=== PATIENT | female | born 2005 | race Two or more races ===

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

== ENCOUNTER 2024-02-04 11:49 | Day surgery (SDC) | payer OTHER, SELFPAY ==
[2024-02-02 14:47] VITALS: BMI 31.4
[2024-02-04 12:52] VITALS: BMI 30.5
[2024-02-04 13:02] LABS: UPreg QC Valid YES; Urine Pregnancy NEGATIVE (NEGATIVE)
--- NOTE | 2024-02-04 13:05 | HO.ANESPROP2 ---
Documented by User: Candice Guerra NP 02/03/24 12:21 HPI - Anesthesia Eval Consult details Narrative: 18yo F for Upper Endoscopy [facility] Active Problems Active Problems: All Active Problems HTN (hypertension) (Acute) Palpitations (Acute) Past Medical History Medical History Headache Palpitations Anxiety Asthma GERD (gastroesophageal reflux disease) Family History Family History Father Diabetes Mother HTN (hypertension) BEATRICE (obstructive sleep apnea) Surgical History Surgical History History of oral surgery Social History Social History (Updated 02/02/24 @ 14:49 by Teresa Troy RN) Patient Tobacco Use Status: Never used Tobacco Use of substances other than those prescribed or required for medical reasons: No Are you DNR?: No Advance Directives: No Advance Directives Information Provided: Yes Recently lost weight without trying: No Meds Allergies Allergy/AdvReac Type Severity Reaction Status Date / Time animal dander [ANIMAL DANDER] Allergy Intermediate sinus Verified 02/04/24 12:52 congestion SEAFOOD Allergy Intermediate HIVES Uncoded 02/02/24 14:48 food coloring Allergy Unknown Unknown Uncoded 02/02/24 14:48 Home Medications ?Medication ?Instructions ?Recorded ?Confirmed ?Last Taken ?Type cetirizine 10 mg capsule (Wal-Zyr 10 mg PO DAILY PRN Allergy Symptoms 06/03/23 02/04/24 Unknown History (cetirizine)) omeprazole 20 mg capsule,delayed 20 mg PO QAM 06/03/23 02/04/24 Unknown History release Exam Height,Weight and Vital Signs: Height 5 ft 2 in Weight 77.791 kg Assessment and Plan Assessment Anesthesia Assessment: Chart Reviewed Documented by User: Brooklyn Rosado DO 02/04/24 13:10 [facility] Past Medical History Medical History Headache Palpitations Anxiety Asthma GERD (gastroesophageal reflux disease) Family History Family History Father Diabetes Mother HTN (hypertension) BEATRICE (obstructive sleep apnea) Family history of problems with anesthesia: No Surgical History Surgical History History of oral surgery History of Problems with Anesthesia: No Social History Social History (Updated 02/02/24 @ 14:49 by Teresa Troy RN) Patient Tobacco Use Status: Never used Tobacco Use of substances other than those prescribed or required for medical reasons: No Are you DNR?: No Advance Directives: No Advance Directives Information Provided: Yes Recently lost weight without trying: No Meds Allergies Allergy/AdvReac Type Severity Reaction Status Date / Time animal dander [ANIMAL DANDER] Allergy Intermediate sinus Verified 02/04/24 12:52 congestion SEAFOOD Allergy Intermediate HIVES Uncoded 02/02/24 14:48 food coloring Allergy Unknown Unknown Uncoded 02/02/24 14:48 Home Medications ?Medication ?Instructions ?Recorded ?Confirmed ?Last Taken ?Type cetirizine 10 mg capsule (Wal-Zyr 10 mg PO DAILY PRN Allergy Symptoms 06/03/23 02/04/24 Unknown History (cetirizine)) omeprazole 20 mg capsule,delayed 20 mg PO QAM 06/03/23 02/04/24 Unknown History release Exam Exam Date and Time: 02/04/24 1308 Height,Weight and Vital Signs: Height 5 ft 2 in Weight 77.791 kg Vital Signs Temperature 98.0 F 02/04/24 13:08 Pulse Rate 94 02/04/24 13:08 Respiratory Rate 15 02/04/24 13:08 Blood Pressure 137/88 02/04/24 13:08 Pulse Oximetry 98 02/04/24 13:08 Oxygen Delivery Method Room Air 02/04/24 13:08 Temperature 98.0 F 02/04/24 13:08 Pulse Rate 94 02/04/24 13:08 Respiratory Rate 15 02/04/24 13:08 Blood Pressure 137/88 02/04/24 13:08 Pulse Oximetry 98 02/04/24 13:08 Oxygen Delivery Method Room Air 02/04/24 13:08 Airway Mallampati Class: II TM Dist: >3cm Neck ROM: Full Loose/Missing/Broken Teeth: No (patient denies any loose or broken teeth) Heart: S1S2 Lungs: CTAB Assessment and Plan Assessment Anesthesia Assessment: Anesthesia Plan Discussed and Chart Reviewed Final Anesthetic Review Family History of Problems with Anesthesia: No History of Problems with Anesthesia: No NPO: Yes ASA Class: II Final Preanesthetic Review: No Changes in Pt Med Stat, Meds/Allgs Chart Reviewed, Consent Obtained/Reviewed and Anes Risks/Benef Reviewed Patient Risk: Low Procedure Risk: Low Anesthetic Plan Anesthetic Plan: MAC: and Agree w/ Assess. and Plan Disposition: Standard PACU
[2024-02-04 13:08] VITALS: BP 137/88; PULSE 94; RESP 15; TEMP 36.7; O2SAT 98
--- NOTE | 2024-02-04 13:12 | MHC.SHP ---
Pre-Procedural Eval Section A - 24 Hr Update-Section A only Date of Service: 02/04/24 The patient is an INPATIENT: No Changes since office visit: No Cold of Flu in the past 2 weeks, No New Medical Problems, No Changes in Medication and No Patient answered all questions The patient has been examined within 24 hours of the surgical procedure. The History & Physical has been completed within 30 days and I have reviewed it.: Yes Section B - Complete if H&P > 30 days Chief Complaint: Gastro-esophageal reflux disease without esophagit Allergies: Allergies Allergy/AdvReac Type Severity Reaction Status Date / Time animal dander [ANIMAL DANDER] Allergy Intermediate sinus Verified 02/04/24 12:52 congestion SEAFOOD Allergy Intermediate HIVES Uncoded 02/02/24 14:48 food coloring Allergy Unknown Unknown Uncoded 02/02/24 14:48 Plan I have reviewed the history and physical and performed a pertinent physical examination on my patient. No changes have occurred unless specified. Time Spent With Patient Time: Total time managing care of this patient today ____ minutes.
[2024-02-04] MEDS: Lactated Ringers 1,000 ML 100 ML IVCONT (13:14)
[2024-02-04 13:32] VITALS: BP 97/55; PULSE 101; RESP 16; TEMP 36.5; O2SAT 95
[2024-02-04 13:47] VITALS: BP 103/64; PULSE 81; RESP 16; TEMP 36.5; O2SAT 95
--- NOTE | 2024-02-04 13:53 | OP_ITS ---
DATE OF SERVICE: 02/04/2024 SURGEON: Robert Greenfield MD INDICATIONS: Gastroesophageal reflux disease. PREOPERATIVE DIAGNOSIS: POSTOPERATIVE DIAGNOSIS: PROCEDURE PERFORMED: Upper endoscopy with biopsy. ESTIMATED BLOOD LOSS: COMPLICATIONS: ANESTHESIA: Monitored anesthesia care. ASSISTANTS: SPECIMENS: DESCRIPTION OF PROCEDURE: A history and physical was performed. The risks and benefits of the procedure were explained to the patient and informed consent was obtained. The patient was placed in left lateral decubitus position. The Olympus video gastroscope was introduced into the esophagus, stomach, and duodenum. Examination was performed and the scope was removed. She tolerated the procedure well and was returned to recovery area in stable condition. FINDINGS: Esophagus: The esophagus was normal. There was no esophagitis. Biopsies were obtained from the EG junction. Stomach: The stomach showed a few linear streaks of erythema consistent with mild gastritis. Biopsies were obtained from the antrum. Duodenum: The bulb and 2nd portion were normal. Biopsies were obtained from the 2nd portion. IMPRESSION: 1. Gastroesophageal reflux disease. 2. Gastritis. RECOMMENDATIONS: 1. Follow up the biopsy results. 2. Continue proton pump inhibitor. MD BLADIMIR Brock/RED / [id number]
== END 2024-02-04 14:23 | disposition home or self-care (01) ==
PROVIDERS: Nurse Practitioner; PCP Registered Nurse; Visit Provider Internal Medicine Gastroenterology
PROC: 0DJ08ZZ Inspection of Upper Intestinal Tract, Via Natural or Artificial Opening Endoscopic (ICD-10-PCS; CPT 43235; principal; 2024-02-04 13:00)
DX: K21.9 Gastro-esophageal reflux disease without esophagitis (principal); K29.50 Unspecified chronic gastritis without bleeding; J45.909 Unspecified asthma, uncomplicated; F41.9 Anxiety disorder, unspecified; R00.2 Palpitations; R51.9 Headache, unspecified; Z79.899 Other long term (current) drug therapy
CPT/HCPCS: 43239; 81025; 88305; 88313; 88342; J2003; J2704

== ENCOUNTER 2024-08-02 14:47 | Outpatient (AMB) | payer OTHER, SELFPAY ==
[2024-08-02 15:01] VITALS: BP 133/84; PULSE 85; O2SAT 97; BMI 32.7
--- NOTE | 2024-08-02 15:01 | A.OFFVIS_ITS ---
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 Accompanied by: Mother Allergies animal dander [ANIMAL DANDER] Allergy (Intermediate, Verified 08/02/24 15:04) sinus congestion SEAFOOD Allergy (Intermediate, Uncoded 08/02/24 15:04) HIVES food coloring Allergy (Unknown, Uncoded 08/02/24 15:04) Unknown Medication List - Last Reconciled 08/02/24 by KIRK McgeeC cetirizine (Wal-Zyr (cetirizine)) 10 mg PO DAILY PRN omeprazole 20 mg PO QAM HPI HPI r/s 07/15/24 1 yr followup w/ekg dx: htn: Details: Saad is a 19-year-old female with no significant past medical history who was referred to Cardiology for evaluation of hypertension and heart palpitations. She did undergo cardiac evaluation last year without significant findings. She was managed conservatively and now presents for follow-up. Today she reports that she has been feeling well since her last visit 07/14/2023. She tells me her heart palpitations and chest discomfort has fully resolved. She believes it was all related to stress and anxiety. She currently offers no concerning symptoms. She denies chest pains, shortness of breath, palpitations, lightheadedness. She has been working at [employer] what she says is a very active job. She does no routine exercise. She is following with a linux admin engineer and trying to improve her diet and weight. Her mother is present. [facility] Medical History Headache Palpitations Anxiety Asthma GERD (gastroesophageal reflux disease) Surgical History History of oral surgery Family History Father Diabetes Mother HTN (hypertension) BEATRICE (obstructive sleep apnea) Social History Patient Tobacco Use Status: Never used Tobacco Review of Systems Const All systems reviewed & are unremarkable except as noted in HPI and below Denies fever(s), Denies frequent falls, Denies weakness and Denies weight loss ENT Denies dizziness Card Denies lightheadedness, Denies dyspnea on exertion, Denies orthopnea and Denies other (loss of consciousness) Resp Denies cough and Denies dyspnea on exertion GI Denies hematochezia and Denies change in stool character Musc Denies abnormal gait, Denies muscle weakness, Denies numbness, Denies radiating pain into limb and Denies tingling Neuro Denies abnormal gait, Denies dizziness, Denies frequent falls, Denies numbness, Denies tingling and Denies weakness Physical Exam Vital Signs: Last Vital Signs Pulse 85 08/02/24 15:01 BP 133/84 08/02/24 15:01 Pulse Ox 97 08/02/24 15:01 Oxygen Delivery Method Room Air 08/02/24 15:01 BMI result Body Mass Index 32.7 Const General: cooperative, healthy appearing, comfortable and no acute distress Orientation/consciousness: patient oriented x3 Neck Neck: Yes normal visual inspection and Yes no JVD Resp Effort & Inspection: normal respiratory effort Auscultation: clear to auscultation bilaterally, no crackles, no rales, no rh onchi and no wheezes Cardio Jugular venous distension: no JVD Rate: regular rate Rhythm: regular rhythm Heart sounds: S1 normal heart sound present, S2 normal heart sound present, no murmurs and no rubs Neuro General: patient oriented x3 Extrem General: Yes normal to inspection, No no pedal edema and No calf tenderness Psych Appearance: grossly normal Mental Status: mental status grossly normal Speech and movement: Normal speech and movement present Office Procedures EKG Details: Today, read by me Sinus rhythm, rate 84, Qtc 439ms [id number], Complete Assessment & Plan Assessment & Plan (1) HTN (hypertension): Code(s): I10 - Essential (primary) hypertension Category: Medical Plan: Prior reports of elevated home blood pressures, mostly diastolic. She says her readings go up when she is stressed and anxious. Our office blood pressures have been in the normal range. She has not on any antihypertensive agents. An echocardiogram was done on 06/26/2023 which was a normal study. A sleep study was done 07/16/2023 which showed no obstructive sleep apnea. She did have blood work to evaluate for potential secondary causes of hypertension (aldosterone, renin, plasma free metanephrines, plasma free normetanephrines) and all testing was normal range. Blood pressure today 133/84. Continue to work on Weight loss, physical activity as tolerated, caffeine reduction, low-salt diet discussed. Continue periodic home blood pressures. Still No need for medical management at this time. She will follow with her PCP. Cardiology follow-up will be p.r.n.. (2) Palpitations: Code(s): R00.2 - Palpitations Category: Medical Plan: Prior reports of uncomfortable pulsation in her right lateral neck when she has heart palpitations. At this time her heart palpitations have fully resolved. A Holter monitor done on 06/18/2023 showed sinus rhythm, average rate 87, 1 PAC. Patient marker used twice in association with sinus and the supraventricular ectopy. Her description of palpitation, skipping correlated with the supra ventricular ectopy beat. Reviewed this with her. Offered reassurance and will have her Continue to have reduced caffeine intake. Continue to stay well hydrated, get adequate rest, increase physical activity. Plan During the visit, we discussed the improvement in chest pain and palpitations due to reduced stress. Managing stress and dietary intake were highlighted as laird components in managing her condition. We reviewed the normal EKG results and emphasized the importance of lifestyle changes such as reducing salt and caffeine, increasing physical activity, and monitoring blood pressure. I recommended periodic monitoring her blood pressure at rest to assess any need for medication in the future. Follow-up with her primary care provider for continued monitoring and potential involvement of cardiology if symptoms arise was advised. Patient Instructions: - Monitor your blood pressure periodically - Follow a low-sodium diet - Increase physical activity; aim for regular exercise - Manage stress through relaxation techniques - Avoid smoking and recreational drugs - Follow up with primary care physician - Maintain contact with cardiology if symptoms worsen Patient was informed and verbally consented to the use of an ambient scribe for clinic note documentation during this visit. Visit time spent on chart review, interview, assessment, orders, documentation. Coding Level of Care Code Est Pt Level 3 (58446) Complex EM visit Add On G2211 Diagnoses HTN (hypertension) I10 Palpitations R00.2 CPT Codes EKG - CPT: 91326-[id number], Complete ([id number]) Time Spent (min) 24
--- OUTSIDE RECORDS SUMMARY | 2024-08-02 16:05 | XMS_ITS | Clinical Summary ---
Author Organization [employer] Address [address] [facility] [place] [address] Care Team Providers Care Advance Seal Delivery System Maintainer Name Role Phone Jazmín Castellon Primary Care Provider [phone] Robert Greenfield MD Unavailable [phone] Allergies Active Allergy Reactions Criticality Noted Date Comments Cat Dander High 02/06/2022 Other Reaction(s): sinus congestion Egg-Derived Products 02/06/2022 Pollen Extract 02/06/2022 Shellfish Allergy Hives High 02/02/2024 Shrimp (Diagnostic) 02/06/2022 SEAFOOD ALLERGY Medications * This document contains information received from the source organization and may not represent a complete record from that organization. fluticasone (Flonase Sensimist) 27.5 MCG/SPRAY nasal spray Administer 1 spray into each nostril in the morning. 2 Active polyvinyl alcohol (Liquifilm Tears) 1.4 % ophthalmic solution Administer 1 drop into both eyes in the morning, at noon, and at bedtime. 1 Active albuterol (ProAir HFA) 108 (90 Base) MCG/ACT inhalerIndicatio ns:Mild intermittent asthma without complication Inhale 1-2 puffs every 6 (six) hours if needed for wheezing or shortness of breath. 18 g 11 2 Active diphenhydrAMINE (BENADryl) 12.5 MG/5ML liquidIndication s:Allergy, subsequent encounter Take 10 mL (25 mg) by mouth every 6 (six) hours if needed for itching or allergies. 118 mL 3 2 Active triamcinolone (Kenalog) 0.1 % creamIndications :Chronic pruritus Apply topically in the morning. Mix with cerave. Apply after showers 80 g 2 3 Active Additional Information Patient not taking.Reported on 06/24/2024 ceramides (CeraVe) moisturizing creamIndications :Chronic pruritus Apply 1 application topically if needed for dry skin. 453 g 2 3 Active lidocaine (Lidoderm) 5 % patchIndications :Low back pain at multiple sites Apply 1 patch topically in the morning. Remove & discard patch within 12 hours or as directed by MD. 30 patch 11 3 Active Additional Information Patient not taking.Reported on 06/24/2024 ketoconazole (NIZOral) 2 % shampoo Apply topically 2 (two) times a week. 120 mL 1 4 Active Additional Information Patient not taking.Reported on 06/24/2024 cetirizine (ZyrTEC) 1 MG/ML syrup Take 10 mL (10 mg) by mouth in the morning. 300 mL 11 4 Active econazole nitrate 1 % cream Apply topically 2 times daily. Use to abdominal fold x 2-4 weeks. 30 g 1 4 02/16/20 25 Active Additional Information Patient not taking.Reported on 06/24/2024 EPINEPHrine (Epipen) 0.3 MG/0.3ML injection syringe Inject 0.3 mL (0.3 mg) as directed 1 (one) time if needed for anaphylaxis for up to 1 dose. Inject into upper leg. Call 911 after use. 2 each 2 4 Active omeprazole OTC (PriLOSEC OTC) 20 MG EC tabletIndication s:Gastroesophage al reflux disease without esophagitis Take 1 tablet (20 mg) by mouth before breakfast and before evening meal. Do not crush, chew, or split. 180 tablet 3 5 05/30/19 26 Active Sodium Fluoride 1.1 % cream [place] teeth for 2 minutes, morning and night. Spit, do not rinse. Do not eat or drink anything for 30 minutes following use. 112 g 3 5 Active Active Problems Problem Noted Date Diagnosed Date Dental calculus 06/24/2024 Gingival bleeding 06/24/2024 Tooth decalcification 06/24/2024 Tonsillar hypertrophy, unilateral 06/24/2024 HTN (hypertension) 03/23/2024 Chest pain 03/23/2024 Allergic reaction 03/23/2024 Vague bodily discomfort 05/08/2023 Assessment & Plan (05/09/2023 2:58 AM EST): Patient reports that she has been feeling palpitations and occasional chest pain. She has an appt. With carton forming machine helper in June. F/U with provider. Future Appointments Date Time Provider Department Center 05/12/2023 9:[address] DIAB NUTR [facility] 06/02/2023 3:30 PM AXEL Harding [facility] History of multiple allergies 01/30/2023 Overview (06/02/2023): -Previously receiving allergy shots from [facility] [facility]. Past documented allergies include eggs, shellfish, animal dander (cats especially), and pollen. Reports 2 episodes of anaphylactic reaction following allergy shots, required ED visit with epi. Pt with understandable anxiety following anaphylactic reactions. -Reports that heat and strong emotions also trigger flares of atopic derm and hive-like rash on body (no associated throat swelling). -Referral to [facility] placed 06/02/23 Gastroesophageal reflux disease without esophagi tis 10/03/2022 Overview (02/19/2024): - EGD performed 02/04/24 for persistence of symptoms despite PPI use (Dr. Greenfield) Assessment & Plan (02/19/2024 8:46 PM EST): Cont lifestyle interventions such as avoid triggering foods (such as coffee, chocolate, fatty foods, tomato, spicy foods), eating 2-3 hours before lying down Increase omeprazole dosing to BID dosing Follow up with GI as scheduled Path report from EGD pending Assessment & Plan (10/09/2023 8:08 PM EDT): Cont lifestyle interventions such as avoid triggering foods (such as coffee, chocolate, fatty foods, tomato, spicy foods), eating 2-3 hours before lying down Cont omeprazole PRN PPI > 8 weeks, symptoms persist Referral to GI placed 10/09/23 Assessment & Plan (06/02/2023 6:39 PM EDT): Clinical presentation c/w acid reflux Cont lifestyle interventions such as avoid triggering foods (such as coffee, chocolate, fatty foods, tomato, spicy foods), tobacco cessation, eating 2-3 hours before lying down Cont omeprazole PRN. Consider referral to GI if use > 8 weeks w/ symptom resistant Assessment & Plan (03/23/2023 1:57 PM EST): ?? Clinical presentation c/w acid reflux ?? Reviewed lifestyle interventions to decrease symptoms including avoid triggering foods (such as coffee, chocolate, fatty foods, tomato, spicy foods), tobacco cessation, eating 2-3 hours before lying down ?? Plan to start PPI. (pt prefers liquid form). Spoke with [facility] pharmacy - will plan to trial lansoprazole disintegrating tablet. Assessment & Plan (01/30/2023 7:35 PM EST): ?? Clinical presentation c/w acid reflux ?? Reviewed lifestyle interventions to decrease symptoms including avoid triggering foods (such as coffee, chocolate, fatty foods, tomato, spicy foods), tobacco cessation, eating 2-3 hours before lying down ?? Education handouts provided ?? Cont famotidine 20mg BID PRN. Reviewed med use and SE. (pt prefers liquid form) Assessment & Plan (10/03/2022 6:06 PM EDT): ?? Clinical presentation c/w acid reflux ?? Reviewed lifestyle interventions to decrease symptoms including avoid triggering foods (such as coffee, chocolate, fatty foods, tomato, spicy foods), tobacco cessation, eating 2-3 hours before lying down ?? Education handouts provided ?? Start famotidine 20mg BID Prn. Reviewed med use and SE. (pt prefers liquid form) Anxiety 06/18/2022 Assessment & Plan (10/03/2022 6:08 PM EDT): -In office RV BE completed by Aleshia Palomares following appt. Please see documentation for further details -Encouraged use of lifestyle interventions and breathing techniques -Declines interest in pharmacotherapy at this time. Follow up if interested in the future Assessment & Plan (10/03/2022 4:47 PM EDT): Assessment: Patient with a history of anxiety that was triggered by an anaphylatic reaction in which she was sent to the hospital. Since the event she reports anxiety, avoidence of activities that she feels will trigger anxiety, and periods of difficulty breathing, increased heat rate, over heating, and hives. She endorsed anxiety symptoms were at an 8 and now it's at a 6 . Symptoms are in the context of biopsychosocial stressor of lack of on going behavioral health services. Patient will benefit from FU BE's. At this time Saad Voss meets criteria for Visit Diagnoses: Problem List Items Addressed This Visit Other Anxiety Patient ready to address current needs Yes Strengths-Saad is actively utilizing a variety of coping mechanism and is supported by her mother. PLAN: 1. Follow up with [facility]: Recommended for follow-up: As needed 2. Patient goal is to decrease anxiety symptoms and increase coping mechanisms 3. Behavioral Recommendations a. Progressive muscle relaxation b. Journal- drawing, collage c. FU BE's Assessment & Plan (06/18/2022 1:33 PM EDT): -In office BE completed by Aleshia Palomares following appt -Encouraged use of lifestyle interventions and breathing techniques -DANETTE-7 and consideration of pharmacotherapy at follow up appt -Suspect DBP and emotionally triggered rash will improve once established with good mental health team Seborrheic dermatitis of scalp 02/04/2022 Palpitations 02/04/2022 Overview (10/09/2023): Intermittent in nature. Associated symptoms include anxiety, although have also occurred at rest. TSH WNL 01/30/23 Sensation of pulsating in neck: Jan 2023 - thyroid US and vascular carotid US results were unremarkable. Following with [facility] - Dr. Hutchinson / [facility] (endo workup) normal Holter monitor 06/18/23 showed sinus rhythm, 1 PAC. Palpitation correlated with Supraventricular ectopy beat Assessment & Plan (06/02/2023 6:37 PM EDT): ED precautions Follow up with specialist as scheduled Mild depression 02/04/2022 Assessment & Plan (02/06/2022 8:06 AM EST): -Denies SI/HI/thoughts of self harm -Interested in establishing with therapist, referral to N placed (email internal referral) Developmental breast asymmetry 02/04/2022 Mild intermittent asthma 01/09/2018 Assessment & Plan (02/06/2022 8:05 AM EST): -Continue with albuterol PRN, med refilled to pharmacy -Pt reports symptoms well controlled, update ACT next appt Resolved Problems Problem Noted Date Diagnosed Date Resolved Date Acute streptococcal pharyngitis 03/23/2024 04/15/2024 Encounters Date Type Department Care Team Description 07/19/2024 3:00 PM EDT Clinical Support [facility] DIABETES/NUTRITION [address] [place] [address] Emeli Cox, MAGDALENA Obesity (BMI 30-39.9) (Primary Dx) 07/19/2024 Travel 06/24/2024 8:00 AM EDT Office Visit [facility] ADULT DENTAL [address] [place] [address] Cony Schmidt Dental calculus (Primary Dx); Gingival bleeding; Tooth decalcification; Tonsillar hypertrophy, unilateral 06/10/2024 Travel 06/10/2024 Telephone [facility] MED & PEDS [address] [place] [address] Jazmín Castellon FNP June recall 06/03/2024 Refill [facility] [address] [place] [address] Jazmín Castellon FNP Gastroesophageal reflux disease without esophagitis from Last 3 Months Immunizations Immunization Administration Dates Next Due HPV 9-Valent 11/24/2015,05/02/2015,03/31/2015 Hep A, ped/adol, 2 dose 12/05/2014,11/02/2009 Hep B, Adolescent or Pediatric 2004,2004,2004 HiB, unspecified 04/08/2006,2004 Hib (PRP-T) 2004 IPV 03/17/2008, 5,2004,05/01 Influenza injectable quadriv alent IIV4 with preservative 11/24/2015 Influenza injectable quadriv alent preservative free 02/09/2020,01/09/2018,11/26/2016,03/31 MMR 11/02/2009,03/17/2008 Meningococcal MCV4P ACYW-135 11/13/2020,12/06/19 15 Pfizer Covid-19 Vaccine 12+ 05/30/2021,,09/20/2020 Pfizer Covid-19 Vaccine 12+ Bivalent 06/18/2022 Pfizer Covid-19 Vaccine 12+ sebas-sucrose (Mccabe Cap) 05/30/2021 Pneumococcal Conjugate PCV 13 03/19/2005, 005,2004 Tdap 03/31/2015 Varicella 03/17/2008,03/19/2005 Family History Medical History Relation Name Comments Migraines Father glaucoma suspect Father Hypertension Maternal Grandmother pacemak er Stroke Maternal Grandmother Hypertension Mother Sleep apnea Mother Cancer Paternal Grandfather gastric Hypertension Paternal Grandfather Hypertension Paternal Grandmother Relation Name Status Comments Father Maternal Grandmother Mother Paternal Grandfather Paternal Grandmother Social History Tobacco Use Types Packs/Day Years Used Date Smoking Tobacco: Never Passive Smoke Exposure: Never Smokeless Tobacco: Never Tobacco Cessation:Counseling Given: Not Answered Alcohol Use Standard Drinks/Week Comments Never 0 (1 standard drink = 0.6 oz pur e alcohol) Depression Answer Date Recorded Patient Health Questionnaire-9 Score 14 02/16/2024 Patient Health Questionnaire-9 Score 14 02/16/2024 Last PHQ-9: Questionnaire Data Not on file 1 04/18/2023 Housing Stability Answer Date Recorded What is your housing situation today? I have tdod joyner 01/03/[address] you li ve. Do you have problems with any of the following? None of the above 01/03/2023 Food Insecurity Answer Date Recorded Within the past 12 months, y ou worried that your food would run out before you got money to buy more: Never True 09/29/2023 Within the past 12 months,th e food you bought just didn't last and you didn't have enough money to get more: Never True Transportation Answer Date Recorded In the past 12 months, has l ack of transportation kept you from medical appts, meetings, work or from getting things needed for daily living? No 01/03/2023 Utilities Answer Date Recorded In the past 12 months, has t he electric, gas, oil or water company threatened to shut off services in your home? No 01/03/2023 Depression Answer Date Recorded Patient Health Questionnaire-2 Score 3 02/16/2024 Internet Access Answer Date Recorded Internet Access Q1 Yes 11/03/2023 Internet Access Q2 Not on file 11/03/2023 Comments Unknown Sex and Gender Information Value Date Recorded Sex Assigned at Female 12/31/2021 10:21 AM EDT Legal Sex Female 10:21 AM EDT Gender Identity Female 12/31/2021 10:21 AM EDT Sexual Orientation Bisexual 02/10/2023 2: 46 PM EST Last Filed Vital Signs Vital Sign Reading Time Taken Comments Blood Pressure 116/68 06/24/2024 7:58 AM EDT Pulse 121 04/15/2024 3:03 PM EST Temperature 37.1 ??C (98.8 ??F) 04/15/2024 3:03 PM ES T Respiratory Rate 17 04/15/2024 3:03 PM EST Oxygen Saturation 97% 04/15/2024 3:03 PM EST Inhaled Oxygen Concentration - - Weight 80.5 kg (177 lb 6.4 oz) 07/20/2024 10:08 AM EDT Height 157.5 cm (5' 2 ) 07/20/2024 10:08 AM EDT Body Mass Index 32.45 07/20/2024 10:08 AM EDT Plan of Treatment Upcoming Encounters Date Type Department Care Team (Late st Contact Info) Description 08/23/2024 3:00 PM EDT Clinical Support [facility] DIABETES/NUTRITION [address] [place] [address] [place] [address] 09/10/2024 9:30 AM EDT Office Visit [facility] MED & PEDS [address] [place], [place] [id number] Almas Castellonle, TEXTILE DESIGNS SALES REPRESENTATIVE [address] [place] [address] 11/04/2024 1:30 PM EDT Office Visit [facility] OPTOMETRY [address] [place] [address] Abhijeet, Elke, OD [address] [place] [address] Health Maintenance Due Date Last Done Comments Chlamydia and Gonorrhea Screening 2004 Disability Screening 2004 Pneumococcal Vaccine: Pediatrics (0 to 5 Years) and At-Risk Patients (6 to 49) Years) (1 of 1 - PPSV23) 02/28/2010 03/19/2005, 2004, 2004 Alcohol/Substance Use Screening 2016 Family Planning (PISQ) 02/28/2019 Meningococcal B Vaccine (1 of 2 - Standard) 2020 Depression Monitoring 08/16/2024 02/16/2024, 024 SDOH Screening 09/28/2024 09/29/2023 Influenza Vaccine (Season Ended) 2024 02/09/2020, 01/09/2018, 11/26/2016, Additional history exists Dental Oral Exam 12/25/2024 06/24/2024 Dental Prophylaxis 12/25/2024 06/24/2024 COVID-19 Vaccine ( season) 2025 06/18/2022, 05/30/2021, 05/30/2021, Additional history exists Postponed from 11/02/2023 (Patient Refused) DTaP/Tdap/Td Vaccines (2 - Td or Tdap) 03/31/2025 03/31/2015 Tobacco Screening 06/24/2025 06/24/2024 Dental X-Ray: Bitewings 06/25/2025 06/24/2024 Dental X-Ray: Full Mouth 06/26/2027 06/24/2024 Lipid Panel 01/31/2028 01/30/2023 Zoster Vaccines (1 of 2) 02/28/2054 RSV Patients and Patients Aged 60 years or older (1 - 1-dose 75+ series) 02/28/2079 Hepatitis B Vaccines Completed 2004, 2004, 2004 HIB Vaccines Completed 04/08/2006, 07/01, 2004 IPV Vaccines Completed 03/17/2008, 08/31, 2004, Additional history exists Hepatitis A Vaccines Completed 12/05/2014, 11/03/19 10 HPV Vaccines Completed 11/24/2015, 03/2015, 03/31/2015 Meningococcal Vaccine Completed 11/13/2020, 015 HIV Screening Completed 05/21/2022 Hepatitis C Screening Completed 05/21/2022 RSV under 20 months Aged Out No longe r eligible based on patient's age to complete this topic Rotavirus Vaccines Aged Out No longer eligible based on patient's age to complete this topic Procedures Procedure Name Priority Date/Time Associated Diagnosis Comments COMPREHENSIVE ORAL EVALUATION - NEW OR ESTABLISHED PATIENT Routine 06/24/2024 8:00 AM EDT CASE PRESENTATION, DETAILED AND EXTENSIVE TREATMENT PLANNING Routine 06/24/2024 8:00 AM EDT Dental calculus Gingival bleeding ORAL HYGIENE INSTRUCTIONS Routine 06/24/2024 8:00 AM EDT Dental calculus Gingival bleeding PROPHYLAXIS - ADULT Routine 06/24/2024 8 :00 AM EDT Dental calculus Gingival bleeding INTRAORAL - COMPLETE SERIES OF RADIOGRAPHIC IMAGES Routine 06/24/2024 8:00 AM EDT Dental calculus Gingival bleeding 31 O COMPOSITE FILLING Routine 06/24/2024 12:00 AM EDT 19 O COMPOSITE FILLING Routine 06/24/2024 12:00 AM EDT 18 O COMPOSITE FILLING Routine 06/24/2024 12:00 AM EDT 11 M COMPOSITE FILLING Routine 06/24/2024 12:00 AM EDT 10 M COMPOSITE FILLING Routine 06/24/2024 12:00 AM EDT 9 L COMPOSITE FILLING Routine 06/24/2024 12:00 AM EDT 9 D COMPOSITE FILLING Routine 06/24/2024 12:00 AM EDT 9 M COMPOSITE FILLING Routine 06/24/2024 12:00 AM EDT 3 O COMPOSITE FILLING Routine 06/24/2024 12:00 AM EDT 2 O COMPOSITE FILLING Routine 06/24/2024 12:00 AM EDT 15 DO COMPOSITE FILLING Routine 06/24/2024 12:00 AM EDT 14 O COMPOSITE FILLING Routine 06/24/2024 12:00 AM EDT 30 EXTRACTION Routine 06/24/2024 12:00 AM EDT 1 EXTRACTION Routine 06/24/2024 12:00 AM EDT 32 EXTRACTION Routine 06/24/2024 12:00 AM EDT LIPID PANEL, STANDARD Routine 01/30/2023 8:05 AM EST Memory difficulties HEPATITIS PANEL, ACUTE W/REFLEX TO CONFIRMATION Routine 05/21/2022 11:06 AM EDT Psoriasis HIV 1/2 ANTIGEN/ANTIBODY, FOURTH GENERATION W/RFL Routine 05/21/2022 11:06 AM EDT Psoriasis from Last 3 Months or Most Recently Relevant to Health Maintenance Results * Lipid Panel, Standard (01/30/2023 8:05 AM EST) Triglycerides 118 <150 mg/dL [facility] Comment:Desirable Triglyceri de: less than 90 mg/dLBorderline High Triglyceride: 90-129 mg/dLHigh Triglyceride: greater than 130 mg/dL Cholesterol 171 <200 mg/dL [facility] Comment:Desirable Cholestero l: less than 170 mg/dLBorderline High Cholesterol: 170-199 mg/dLHigh Cholesterol: greater than 200 mg/dL LDL Cholesterol Calculated 98 <100 mg/dL [facility] Comment:Desirable LDL: less than 110 mg/dLBorderline LDL: 110-129 mg/dLHigh LDL: greater than or equal to 130 mg/dL HDL Cholesterol 50 >40 mg/dL [facility] Comment:Desirable HDL: great er than 45 mg/dLBorderline HDL: 40-45 mg/dLLow HDL: less than 40 mg/dL Note: This HDL assay may give artificially low results in patients with liver disease. Blood Venous blood specimen / Unknown 01/30/2023 8:05 AM EST 01/30/2023 11:20 AM EST us Jazmín Castellon TEXTILE DESIGNS SALES REPRESENTATIVE LAB BLOOD ORDERABLES Final Res ult Performing Organization Address City/[facility]/ZIP Co de Phone Number [facility] [address] [place] [phone] * Hepatitis Panel, Acute??with Reflex to??Confirmation (05/21/2022 11:06 AM EDT) Hepatitis A IgM NON-REACT MIREILLE NON-REACT [place]RE[place]LE [facility] Comment: For additional information, please refer to http://Telanetix.DesignPax/faq/NTN374 (This link is being provided for informational/ educational purposes only.) Hepatitis B Surface Ag NON-REACT MIREILLE NON-REACT MIREILLE[facility]bris [place] [facility] Hepatitis B Core Antibody IgM NON-REACT MIREILLE NON-REACT MIREILLE [facility] [place] [facility] Hepatitis C Antibody NON-REACT MIREILLE NON-REACT MIREILLE [facility] [place] [facility] Index 0.04 <1.00 [facility] Comment: HCV antibody was non-reactive. There is no laboratory evidence of HCV infection. In most cases, no further action is required. However, if recent HCV exposure is suspected, a test for HCV RNA (test code 32837) is suggested. For additional information please refer to http://Telanetix.DesignPax/faq/YEO28w9 (This link is being provided for informational/ educational purposes only.) Blood Venous blood specimen / Unknown 05/21/2022 11:06 AM EDT 05/21/2022 11:06 AM EDT Narrative [facility] - 05/26/2022 11:23 PM EDT FASTING:YES FASTING: YES Nany Max MD LAB BLOOD ORDERABLES Final Re sult [facility] [address], [place] [address] [facility] [place] [facility] [address] [place] [address] * HIV-1/2 Antigen and Antibodies, Fourth Generation, with Reflexes (05/21/2022 11:06 AM EDT) HIV Antigen/Antibody, 4th Generation NON-REAC TIVE NON-REAC TIVE [facility] [place] [facility] Comment: HIV-1 antigen and HIV-1/HIV-2 antibodies were not detected. There is no laboratory evidence of HIV infection. PLEASE NOTE: This information has been disclosed to you from records whose confidentiality may be protected by state law. ??If your state requires such protection, then the state law prohibits you from making any further disclosure of the information without the specific written consent of the person to whom it pertains, or as otherwise permitted by law. A general authorization for the release of medical or other information is NOT sufficient for this purpose. ?? For additional information please refer to http://education.DesignPax/faq/JLV428 (This link is being provided for informational/ educational purposes only.) The performance of this assay has not been clinically validated in patients less than 2 years old. Blood Venous blood specimen / Unknown 05/21/2022 11:06 AM EDT 05/21/2022 11:06 AM EDT Narrative [facility] - 05/26/2022 11:23 PM EDT FASTING:YES FASTING: YES Nany Max MD LAB BLOOD ORDERABLES Final Re sult [facility] [address], [place] [address] [facility] [place] [facility] [address] [place] [address] from Last 3 Months or Most Recently Relevant to Health Maintenance Insurance STANDARD DENTAL - HSN PARTIAL (MEDICAID) Care Teams Advance Seal Delivery System Maintainer Relationship Specialty Start Date End Date Jazmín Castellon FNP [address] [place] [phone] PCP - General Family Medicine 08/29/21 Robert Greenfield MD [address] [place] [phone] Gastroenterology 02/19/24
== END 2024-08-02 15:34 | disposition home or self-care (01) ==
PROVIDERS: PCP Registered Nurse; Visit Provider Nurse Practitioner Family
DX: I10 Essential (primary) hypertension (principal); R00.2 Palpitations
CPT/HCPCS: 93010; 99213; G2211

== ENCOUNTER → 2024-08-02 14:47 | Outpatient (BNVA) | payer OTHER, SELFPAY | PROVIDERS: PCP Registered Nurse; Visit Provider Nurse Practitioner Family | DX: I10 Essential (primary) hypertension (principal); R00.2 Palpitations | CPT/HCPCS: 93005; 99212 ==

== ENCOUNTER 2024-11-03 12:16 | Outpatient (REF) | payer MEDICAID, SELFPAY ==
--- OUTSIDE RECORDS SUMMARY | 2024-02-04 09:00 | XMS_ITS ---
Author Organization [facility] Address [address] [place] [id number] Care Team Providers Care Instrument Worker Name Role Phone BRITTANY FLORES, MICA Primary Care Provider Robert Galo Jr REASON FOR VISIT gerd Problems Problem Type SNOMED Code ICD Code Onset Dates Problem Status W/U Status Risk Notes Problem Gastroesophageal reflux disease ([id number]) Gastroesophageal reflux disease (K21.9) Active confirmed Encounters Encounter Location Date Provider Diagnosis [facility] Outpatient [address] [place] [phone] 02/04/2024 Robert Greenfield Jr Gastroesophageal reflux disease K21.9 and Acute gastritis without bleeding K29.00 Assessments Encounter Date Diagnosis (ICD Code) Assessment Notes Treatment Notes Treatment Clinical Notes Section Notes 02/04/2024 Gastroesophageal reflux disease (ICD-10 - K21.9) 02/04/2024 Acute gastritis without bleeding (ICD-10 - K29.00) Plan Of Treatment No Information Progress Notes * CHANDRA PERKINS SDOB :2005 (19 yo F)Acc No.[id number]:02/04/2024 EGD/MAC Patient: Adele CHANDRA WATTERS Provider: Volodymyr Greenfield MD :2005 A ge:18 Y S ex:Female Date:02/04/2024 Address:[address] [place], [place] [phone] Pcp:MICA SOTO MD Subjective: * Chief Complaints: * 1 . Gerd. * Medical History: Objective: * Vitals: Assessment: * Assessment: 1. G astroesophageal reflux disease - K21.9 (Primary) 2 . A cute gastritis without bleeding - K29.00 Plan: * Treatment: * Procedure Codes: 4 3239 UPPER GI ENDOSCOPY, BIOPSY * * The named appointment provid er may or may not be the originator of this progress note, and it is not deemed complete until electronically signed by the appointment provider. Sign off status: Pending * Provider: Volodymyr Greenfield MD Date: 1 04/06/2023 Generated for Helga alvarado/Lauren/Mirelaransmitting on: 0 11/03/2024 02:52 PM EDT
--- OUTSIDE RECORDS SUMMARY | 2024-11-03 14:52 | XMS_ITS | Clinical Summary ---
Author Organization [employer] Address [address] [facility] [address] [place] [address] Care Team Providers Care Tool Supervisor Name Role Phone Jazmín Castellon Primary Care Provider [phone] Robert Greenfield MD Unavailable [phone] Allergies Active Allergy Reactions Criticality Noted Date Comments Cat Dander High 02/06/2022 Other Reaction(s): sinus congestion Egg-Derived Products 02/06/2022 Pollen Extract 02/06/2022 Shellfish Allergy Hives High 02/02/2024 Shrimp (Diagnostic) 02/06/2022 SEAFOOD ALLERGY Medications * This document contains information received from the source organization and may not represent a complete record from that organization. polyvinyl alcohol (Liquifilm Tears) 1.4 % ophthalmic solution Administer 1 drop into both eyes in the morning, at noon, and at bedtime. 021 Active albuterol (ProAir HFA) 108 (90 Base) MCG/ACT inhalerIndication s:Mild intermittent asthma without complication Inhale 1-2 puffs every 6 (six) hours if needed for wheezing or shortness of breath. 18 g 11 022 Active triamcinolone (Kenalog) 0.1 % creamIndications: Chronic pruritus Apply topically in the morning. Mix with cerave. Apply after showers 80 g 2 023 Active Additional Information Patient not taking.Reported on 06/24/2024 ceramides (CeraVe) moisturizing creamIndications: Chronic pruritus Apply 1 application topically if needed for dry skin. 453 g 2 023 Active lidocaine (Lidoderm) 5 % patchIndications: Low back pain at multiple sites Apply 1 patch topically in the morning. Remove & discard patch within 12 hours or as directed by MD. 30 patch 11 023 Active Additional Information Patient not taking.Reported on 06/24/2024 ketoconazole (NIZOral) 2 % shampoo Apply topically 2 (two) times a week. 120 mL 1 024 Active Additional Information Patient not taking.Reported on 06/24/2024 econazole nitrate 1 % cream Apply topically 2 times daily. Use to abdominal fold x 2-4 weeks. 30 g 1 024 2024 Active Additional Information Patient not taking.Reported on 06/24/2024 EPINEPHrine (Epipen) 0.3 MG/0.3ML injection syringe Inject 0.3 mL (0.3 mg) as directed 1 (one) time if needed for anaphylaxis for up to 1 dose. Inject into upper leg. Call 911 after use. 2 each 2 024 Active Sodium Fluoride 1.1 % cream Hymera teeth for 2 minutes, morning and night. Spit, do not rinse. Do not eat or drink anything for 30 minutes following use. 112 g 3 025 Active lansoprazole (Prevacid SoluTab) 15 MG disintegrating tablet Take 1 tablet (15 mg) by mouth Once per day. Dissolve on tongue before swallowing particles; do not chew, cut, break, or swallow whole. 90 tablet 1 025 2024 Active fluticasone (Flonase Sensimist) 27.5 MCG/SPRAY nasal spray Administer 1 spray into each nostril Once per day. 10 g 1 Active cetirizine (ZyrTEC) 1 MG/ML syrup Take 10 mL (10 mg) by mouth Once per day. 300 mL 11 025 2025 Active diphenhydrAMINE (BENADryl) 12.5 MG/5ML liquidIndications :Allergy, subsequent encounter Take 10 mL (25 mg) by mouth every 6 (six) hours if needed for itching or allergies. 118 mL 3 025 2025 Active fluticasone (Flonase Sensimist) 27.5 MCG/SPRAY nasal spray Administer 1 spray into each nostril in the morning. 022 2024 Discontinued(R eorder (will not trigger notification to Pharmacy)) diphenhydrAMINE (BENADryl) 12.5 MG/5ML liquidIndications :Allergy, subsequent encounter Take 10 mL (25 mg) by mouth every 6 (six) hours if needed for itching or allergies. 118 mL 3 022 2024 Discontinued(R eorder (will not trigger notification to Pharmacy)) cetirizine (ZyrTEC) 1 MG/ML syrup Take 10 mL (10 mg) by mouth in the morning. 300 mL 11 024 2024 Discontinued(R eorder (will not trigger notification to Pharmacy)) omeprazole OTC (PriLOSEC OTC) 20 MG EC tabletIndications :Gastroesophageal reflux disease without esophagitis Take 1 tablet (20 mg) by mouth before breakfast and before evening meal. Do not crush, chew, or split. 180 tablet 3 025 2024 Discontinued(R eorder (will not trigger notification to Pharmacy)) omeprazole OTC (PriLOSEC OTC) 20 MG EC tabletIndications :Gastroesophageal reflux disease without esophagitis Take 1 tablet (20 mg) by mouth before breakfast and before evening meal. Do not crush, chew, or split. 180 tablet 3 025 2024 Discontinued(T herapy completed) Active Problems Problem Noted Date Diagnosed Date DANETTE (generalized anxiety disorder) 10/25/2024 Panic disorder 10/25/2024 Healthcare maintenance 10/10/2024 Overview (10/10/2024): Last PE: 10/08/24 Pap: starting at 20 y/o Dental calculus 06/24/2024 Gingival bleeding 06/24/2024 Tooth decalcification 06/24/2024 Tonsillar hypertrophy, unilateral 06/24/2024 Elevated blood pressure reading 03/23/2024 Assessment & Plan (10/10/2024 3:24 PM EDT): - Elevated in office, well controlled per home readings. Possibly 2/2 anxiety. - Follow up precautions Chest pain 03/23/2024 Allergic reaction 03/23/2024 Vague bodily discomfort 05/08/2023 Assessment & Plan (05/09/2023 2:58 AM EST): Patient reports that she has been feeling palpitations and occasional chest pain. 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 F/U with provider. Future Appointments Date Time Provider Department Center 05/12/2023 9:[address] DIAB NUTR [facility] 06/02/2023 3:30 PM AXEL Harding [facility] MED [facility] History of multiple allergies 01/30/2023 Overview (06/02/2023): -Previously receiving allergy shots from [facility]. Past documented allergies include eggs, shellfish, animal dander (cats especially), and pollen. Reports 2 episodes of anaphylactic reaction following allergy shots, required ED visit with epi. Pt with understandable anxiety following anaphylactic reactions. -Reports that heat and strong emotions also trigger flares of atopic derm and hive-like rash on body (no associated throat swelling). -Referral to [facility] placed 06/02/23 Gastroesophageal reflux disease without esophagi tis 10/03/2022 Overview (02/19/2024): - EGD performed 02/04/24 for persistence of symptoms despite PPI use (Dr. Greenfield) Assessment & Plan (10/10/2024 3:25 PM EDT): Cont lifestyle interventions such as avoid triggering foods (such as coffee, chocolate, fatty foods, tomato, spicy foods), eating 2-3 hours before lying down Switch from omeprazole to lansoprazole given insurance coverage Follow up with GI Assessment & Plan (02/19/2024 8:46 PM EST): [...] Assessment & Plan (03/23/2023 1:57 PM EST): Clinical presentation c/w acid reflux Reviewed lifestyle interventions to decrease symptoms including avoid triggering foods (such as coffee, chocolate, fatty foods, tomato, spicy foods), tobacco cessation, eating 2-3 hours before lying down Plan to start PPI. (pt prefers liquid form). Spoke with [facility] pharmacy - will plan to trial lansoprazole disintegrating tablet. Assessment & Plan (01/30/2023 7:35 PM EST): Clinical presentation c/w acid reflux Reviewed lifestyle interventions to decrease symptoms including avoid triggering foods (such as coffee, chocolate, fatty foods, tomato, spicy foods), tobacco cessation, eating 2-3 hours before lying down Education handouts provided Cont famotidine 20mg BID PRN. Reviewed med use and SE. (pt prefers liquid form) Assessment & Plan (10/03/2022 6:06 PM EDT): Clinical presentation c/w acid reflux Reviewed lifestyle interventions to decrease symptoms including avoid triggering foods (such as coffee, chocolate, fatty foods, tomato, spicy foods), tobacco cessation, eating 2-3 hours before lying down Education handouts provided Start famotidine 20mg BID Prn. Reviewed med use and SE. (pt prefers liquid form) Anxiety 06/18/2022 Assessment & Plan (10/10/2024 3:25 PM EDT): -No acute mental health concerns, but no longer established with OP therapy team -Referral for [facility] BE for further eval anxiety and other possible conditions Assessment & Plan (10/03/2022 6:08 PM EDT): [...] behavioral health services. Patient will benefit from WEND[facility] STYLES's. At this time Saad Voss meets criteria for Visit Diagnoses: Problem List Items Addressed This Visit Other Anxiety Patient ready to address current needs Yes Strengths-Saad is actively utilizing a variety of coping mechanism and is supported by her mother. PLAN: 1. Follow up with [facility]: Recommended for follow-up: As needed 2. Patient goal is to decrease anxiety symptoms and increase coping mechanisms 3. Behavioral Recommendations a. Progressive muscle relaxation b. Journal- drawing, collage c. FU JENSEN's Assessment & Plan (06/18/2022 1:33 PM EDT): -In office BE completed by Aleshia Palomares following appt -Encouraged use of lifestyle interventions and breathing techniques -DANETTE-7 and consideration of pharmacotherapy at follow up appt -Suspect DBP and emotionally triggered rash will improve once established with good mental health team Seborrheic dermatitis of scalp 02/04/2022 Palpitations 02/04/2022 Overview (10/10/2024): Intermittent in nature. Associated symptoms include anxiety, although have also occurred at rest. TSH WNL 01/30/23 Sensation of pulsating in neck: Jan 2023 - thyroid US and vascular carotid US results were unremarkable. Following with [facility] Cards - Dr. Hutchinson / [facility] (endo workup) normal Holter monitor 06/18/23 showed sinus rhythm, 1 PAC. Palpitation correlated with Supraventricular ectopy beat Echo: normal study 06/26/23 Sleep study 07/15/24 that did not demonstrate BEATRICE. Assessment & Plan (10/10/2024 3:07 PM EDT): Resolved at this time, suspected caused by stress/anxiety. Reassured with normal cardiac workup. Follow up PRN. Assessment & Plan (06/02/2023 6:37 PM EDT): [...] Date Acute streptococcal pharyngitis 03/23/2024 04/15/2024 Encounters * This document contains information received from the source organization and may not represent a complete record from that organization. Date Type Department Care Team Description 11/03/2024 Population Health Risk Score [facility] ([facility]) Department [address] [id number] Provider, Population Health Generic 10/25/2024 Travel 10/08/2024 1:15 PM EDT Office Visit [facility] [address] [place] [address] Jazmín Castellon FNP Encounter for routine history and physical examination of adult (Primary Dx); Dietary counseling; Exercise counseling; Gastroesophageal reflux disease without esophagitis; Labile mood; Allergy, subsequent encounter; Palpitations; Elevated blood pressure reading; Anxiety; Healthcare maintenance 10/08/2024 Travel 10/01/2024 Patient Outreach [facility] [address] [place] [address] Jazmín Castellon FNP Pre-visit Planning (SDOH screening negative and Tobacco screening negative) 09/16/2024 Telephone [facility] [address] [place] [address] Jazmín Castellon FNP Letter Request (I called the patient per the forms nurse, regarding a request for a letter, to be excused from serving jury duty. I reached her voicemail, and left a message asking her to schedule an appointment with her PCP, to discuss the need for a letter. Her last appointment was on 02/16/24, and she no showed for a PE on 09/10/24. I asked her to return my call at ext [phone], if she has any questions.) 09/02/2024 Patient Outreach [facility] [address] [place] [address] Jazmín Castellon FNP Pre-visit Planning (Pre visit planning LVM ) from Last 3 Months Immunizations Immunization Administration Dates Next Due HPV 9-Valent 11/24/2015,05/02/2015,03/31/2015 Hep A, ped/adol, 2 dose 12/05/2014,11/02/2009 Hep B, Adolescent or Pediatric 2004,2004,2004 HiB, unspecified 04/08/2006,2004 Hib (PRP-T) 2004 IPV 03/17/2008, 5,2004,05/01 Influenza injectable quadriv alent IIV4 with preservative 11/24/2015 Influenza injectable quadriv alent preservative free 02/09/2020,01/09/2018,11/26/2016,03/31 MMR 11/02/2009,03/17/2008 Meningococcal MCV4P ACYW-135 11/13/2020,12/06/19 Pfizer Covid-19 Vaccine 12+ 05/30/2021,,09/20/2020 Pfizer Covid-19 [...] Date Recorded Patient Health Questionnaire-9 Score 14 10/08/2024 Patient Health Questionnaire-9 Score 14 10/08/2024 Last PHQ-9: Questionnaire Data Not on file 0 10/08/2024 Housing Stability Answer Date Recorded What is your housing situation today? I have todd joyner 10/01/[address] you li ve. Do you have problems with any of the following? None of the above 10/01/2024 Food Insecurity Answer Date Recorded Within the past 12 months, y ou worried that your food would run out before you got money to buy more: Never True 10/01/2024 Within the past 12 months,th e food you bought just didn't last and you didn't have enough money to get more: Never True 03/2024 Transportation Answer Date Recorded In the past 12 months, has l ack of transportation kept you from medical appts, meetings, work or from getting things needed for daily living? No 10/01/2024 Utilities Answer Date Recorded In the past 12 months, has t he electric, gas, oil or water company threatened to shut off services in your home? No 10/01/2024 Depression Answer Date Recorded Patient Health Questionnaire-2 Score 2 10/08/2024 Internet Access Answer Date Recorded Internet Access Q1 Yes 10/01/2024 Internet Access Q2 Not on file 10/01/2024 Comments Unknown Intention Date Recorded No desire to become (finding) 0 10/08/2024 Sex and Gender Information Value Date Recorded Sex Assigned at Female 12/31/2021 10:21 AM EDT Legal Sex Female 10:21 AM EDT Gender Identity Female 12/31/2021 10:21 AM EDT Sexual Orientation Bisexual 02/10/2023 2: 46 PM EST Last Filed Vital Signs Vital Sign Reading Time Taken Comments Blood Pressure 138/94 10/08/2024 1:23 PM EDT Pulse 88 10/08/2024 1:23 PM EDT Temperature 36.8 C (98.2 F) 10/08/2024 1:23 PM EDT Respiratory Rate 16 10/08/2024 1:23 PM EDT Oxygen Saturation 99% 10/08/2024 1:23 PM EDT Inhaled Oxygen Concentration - - Weight 81.6 kg (180 lb) 10/08/2024 1:23 PM EDT Height 158.8 cm (5' 2.5 ) 10/08/2024 1:23 PM EDT Body Mass Index 32.4 10/08/2024 1:23 PM EDT Plan of Treatment Upcoming Encounters Date Type Department Care Team (Late st Contact Info) Description 03/24/2025 2:00 PM EST Office Visit [facility] [address] [place] [address] Abhijeet, Elke, OD [address] [place] [address] Health Maintenance Due Date Last Done Comments Chlamydia and Gonorrhea Screening 2004 Pneumococcal Vaccine: Pediatrics (0 to 5 Years) and At-Risk Patients (6 to 49) Years (1 of 1 - PPSV23) 02/28/2010 03/19/2005, 2004, 2004 Meningococcal B Vaccine (1 of 2 - Standard) 2020 COVID-19 Vaccine ( - season) 2024 06/18/2022, 05/30/2021, 05/30/2021, Additional history exists Influenza Vaccine (#1) 2024 , 01/09/2018, 11/26/2016, Additional history exists Dental Oral Exam 12/25/2024 06/24/2024 Dental Prophylaxis 12/25/2024 06/24/2024 DTaP/Tdap/Td Vaccines (2 - Td or Tdap) 03/31/2025 03/31/2015 Depression Monitoring 04/10/2025 10/08/2024, 025 Tobacco Screening 06/24/2025 06/24/2024 Dental X-Ray: Bitewings 06/25/2025 06/24/2024 SDOH Screening 10/01/2025 10/01/2024 Alcohol/Substance Use Screening 10/08/2025 10/08/2024 Disability Screening 10/08/2025 10/08/2024 Family Planning (PISQ) 10/10/2025 10/10/2024 Dental X-Ray: Full Mouth 06/26/2027 06/24/2024 Lipid [...] 12/05/2014, 11/03/19 10 HPV Vaccines Completed 11/24/2015, 03/0 03/2015, 03/31/2015 Meningococcal Vaccine Completed 11/13/2020, 015 HIV Screening Completed 05/21/2022 Hepatitis C Screening Completed 05/21/2022 RSV under 20 months Aged Out No longe r eligible based on patient's age to complete this topic Rotavirus Vaccines Aged Out No longer eligible based on patient's age to complete this topic Procedures Procedure Name Priority Date/Time Associated Diagnosis Comments PROPHYLAXIS - ADULT Routine 06/24/2024 8 :00 AM EDT Dental calculus Gingival bleeding INTRAORAL - COMPLETE SERIES OF RADIOGRAPHIC IMAGES Routine 06/24/2024 8:00 AM EDT Dental calculus Gingival bleeding COMPREHENSIVE ORAL EVALUATION - NEW OR ESTABLISHED PATIENT Routine 06/24/2024 8:00 AM EDT LIPID PANEL, STANDARD Routine 01/30/2023 8:05 AM EST Memory difficulties HEPATITIS PANEL, ACUTE W/REFLEX TO CONFIRMATION Routine 05/21/2022 11:06 AM EDT Psoriasis HIV 1/2 ANTIGEN/ANTIBODY, FOURTH GENERATION W/RFL Routine 05/21/2022 11:06 AM EDT Psoriasis from Last 3 Months or Most Recently Relevant to Health Maintenance Results * Lipid Panel, Standard (01/30/2023 8:05 AM EST) Triglycerides 118 <150 mg/dL [facility] Comment:Desirable Triglyceri de: less than 90 mg/dLBorderline High Triglyceride: 90-129 mg/dLHigh Triglyceride: greater than 130 mg/dL Cholesterol 171 <200 mg/dL [facility] Comment:Desirable Cholestero l: less than 170 mg/dLBorderline High Cholesterol: 170-199 mg/dLHigh Cholesterol: greater than 200 mg/dL LDL Cholesterol Calculated 98 <100 mg/dL [facility] Comment:Desirable LDL: less than 110 mg/dLBorderline LDL: 110-129 mg/dLHigh LDL: greater than or equal to 130 mg/dL HDL Cholesterol 50 >40 mg/dL [facility] Comment:Desirable HDL: great er than 45 mg/dLBorderline HDL: 40-45 mg/dLLow HDL: less than 40 mg/dL Note: This HDL assay may give artificially low results in patients with liver disease. Blood Venous blood specimen / Unknown 01/30/2023 8:05 AM EST 01/30/2023 11:20 AM EST us Jazmín Castellon [employer] LAB BLOOD ORDERABLES Final Res ult [facility] [address] [place] [phone] * Hepatitis Panel, Acute??with Reflex to??Confirmation (05/21/2022 11:06 AM EDT) Hepatitis A IgM NON-REACT MIREILLE NON-REACT MIREILLE [facility] [place] [facility] Comment: For additional information, please refer to http://GoChime/faq/DVY071 (This link is being provided for informational/ educational purposes only.) Hepatitis B Surface Ag NON-REACT MIREILLE NON-REACT MIREILLE [facility] [place] [facility] Hepatitis B Core Antibody IgM NON-REACT MIREILLE NON-REACT MIREILLEFeuerlabs [place] [facility] Hepatitis C Antibody NON-REACT MIREILLE NON-REACT MIREILLE [facility] [place] [facility] Index 0.04 <1.00 [facility] Comment: HCV antibody was non-reactive. There is no laboratory evidence of HCV infection. In most cases, no further action is required. However, if recent HCV exposure is suspected, a test for HCV RNA (test code 08106) is suggested. For additional information please refer to http://Endovention.[employer]/faq/ZRR08w0 (This link is being provided for informational/ educational purposes only.) Blood Venous blood specimen / Unknown 05/21/2022 11:06 AM EDT 05/21/2022 11:06 AM EDT Narrative [facility] - 05/26/2022 11:23 PM EDT FASTING:YES FASTING: YES us Nany Max MD LAB BLOOD ORDERABLES Final Re sult [facility] [address] [facility], [place] [address] [facility] [place] [facility] [address] [place] [address] * HIV-1/2 Antigen and Antibodies, Fourth Generation, with Reflexes (05/21/2022 11:06 AM EDT) HIV Antigen/Antibody, 4th Generation NON-REAC TIVE NON-REAC TIVE [facility] [place] [facility] Comment: HIV-1 antigen and HIV-1/HIV-2 antibodies were not detected. There is no laboratory evidence of HIV infection. PLEASE NOTE: This information has been disclosed to you from records whose confidentiality may be protected by state law. If your state requires such protection, then the state law prohibits you from making any further disclosure of the information without the specific written consent of the person to whom it pertains, or as otherwise permitted by law. A general authorization for the release of medical or other information is NOT sufficient for this purpose. For additional information please refer to http://education.[employer]/faq/KIE306 (This link is being provided for informational/ educational purposes only.) The performance of this assay has not been clinically validated in patients less than 2 years old. Blood Venous blood specimen / Unknown 05/21/2022 11:06 AM EDT 05/21/2022 11:06 AM EDT Narrative [facility] - 05/26/2022 11:23 PM EDT FASTING:YES FASTING: YES us Nany Max MD LAB BLOOD ORDERABLES Final Re sult [facility] [address], [place] [address] [facility] [place] [facility] [address] [place] [address] from Last 3 Months or Most Recently Relevant to Health Maintenance Insurance [facility] C3 [facility] C3 DENTAL - HSN PARTIAL (MEDICAID) DENTAL-[facility] MEDICAID STAND ADULT Care Teams Tool Supervisor Relationship Specialty Start Date End Date Jazmín Castellon FNP [address] [place] [id number] PCP - General Family Medicine 08/29/21 Robert Greenfield MD [address] [place] [address] [address] [place] [id number] Gastroenterology 02/19/24
--- OUTSIDE RECORDS SUMMARY | 2024-11-03 14:53 | XMS_ITS | Patient Health Record ---
Author Organization [facility] Address [address] [place] [address] Care Team Providers Care Antique Finisher Name Role Phone MICA SOTO MD Primary Care Provider Robert Galo Jr Unavailable Allergies Allergen (clinical drug ingredient) Drug/Non Drug Allergy documented on EMR Reaction Allergy Type Onset Date Status Shellfish (FN) Shellfish-derived Products Unknown Drug Allergy Active Cats Unknown Allergy Active seasonal (uncoded) Unknown Allergy A ctive Results Component Value Reference Range Notes Ur Preg Test Reviewed date:02/05/2024 08:20:54 AM Interpretation: Performing Lab:[facility], [address] [place] [phone] Notes/Report: Urine NEGATIVE NEGATIVE This test was developed to detect early . False negative results may occur after the 5th - 7th week of when using this test method. If clinically indicated, consider a serum hCG. Pathology Reviewed date:02/11/2024 08:25:34 AM Interpretation: Performing Lab:[facility], [address] [place] [phone] Notes/Report: Reason For Referral No Information Medications Medication SIG (Take, Route, Fr equency, Duration) Notes Start Date End Date Status Omeprazole 10 MG 2 capsules Orally On ce a day for 30 day(s) 01/19/2024 Active Cetirizine HCl 1 MG/ML TAKE 10 ML BY DOMENICA TH EVERY MORNING Oral for 90 Active Omeprazole 20 MG 1 capsule 1/2 to 1 h our before morning meal Orally Once a day for 30 day(s) 01/19/2024 Active Immunizations Vaccine Route Administration Date Status Comme nts Influenza Unknown 01/19/2024 Refused Social History Tobacco Use: Social History Observation Description Date Details (start date - stop date) Never Smoker NA - NA Tobacco Use/Smoking Question Answer Notes Patient is a nonsmoker Alcohol Screen Question Answer Notes Did you have a drink containing alcohol in the p ast year? No Points 0 Interpretation Negative Problems Problem Type SNOMED Code ICD Code Onset Dates Problem Status W/U Status Risk Notes Problem Gastroesophageal reflux disease (593210650) Gastroesophageal reflux disease (K21.9) Active confirmed Problem 341949652 Gastroesophageal reflux disease, unspecified whether esophagitis present (K21.9) Active confirmed Vital Signs Temperature 98.4 degrees Fahrenheit 01/19/2024 Blood pressure diastolic 00 mm Hg 01/19/2024 BMI Percentile 94.75 % 01/19/2024 Height 5 ft 2 in in 01/19/2024 Blood pressure systolic 000 mm Hg 01/19/2024 Weight 171 lb 8 oz lbs 01/19/2024 BMI 31.36 kg/m2 01/19/2024 Encounters Encounter Location Date Provider Diagnosis [facility] Outpatient [address] [place] [phone] 02/04/2024 Robert Greenfield Jr Gastroesophageal reflux disease K21.9 and Acute gastritis without bleeding K29.00 [facility] [address] [address] 01/19/2024 Robert Greenfield Jr Gastroesophageal reflux disease, unspecified whether esophagitis present K21.9 [facility] [address] [address] 02/11/2024 Robert Greenfield Jr Assessments Encounter Date Diagnosis (ICD Code) Assessment Notes Treatment Notes Treatment Clinical Notes Section Notes 02/04/2024 Acute gastritis without bleeding (ICD-10 - K29.00) 02/04/2024 Gastroesophageal reflux disease (ICD-10 - K21.9) 01/19/2024 Gastroesophageal reflux disease, unspecified whether esophagitis present (ICD-10 - K21.9) Gastroesophageal reflux disease material was printed We discussed gastroesophageal reflux disease today. We discussed diet, lifestyle modifications, and weight management regarding the treatment of reflux. We recommended that she begin using omeprazole regularly instead of p.r.n. Endoscopy will be scheduled because of her persistent symptoms. She is aware of person benefits and agrees to proceed. Plan Of Treatment Future Test Test Name Order Date UPPER GI ENDOSCOPY 01/19/2024 Insurance Providers Payer Name Payer Address Payer Phone Subscriber Number Group Number Insured Name Patient Relationship to Insured Coverage Start Date Coverage End Date [facility] [address] [address] [place], [place] [phone] [id number] CHANDRA PERKINS Self - patient is the insured MED[place]ID [facility] [address] [place] [address] [id number] CHANDRA PERKINS Self - patient is the insured Medical (General) History Medical History History ICD Code Gastroesophageal reflux disease Environmental allergies Anxiety Asthma Palpitations Headaches Surgical History Surgery Date(Month/Year)
--- OUTSIDE RECORDS SUMMARY | 2024-11-03 14:53 | XMS_ITS | Clinical Summary ---
Author Organization [facility] Address [address] [place] [address] Care Team Providers Care Focuser Name Role Phone Unavailable Primary Care Provider Unavailabl e Social History Tobacco Use Types Packs/Day Years Used Date Smoking Tobacco: Never Assessed Comments Unknown Sex and Gender Information Value Date Recorded Sex Assigned at Not on file Legal Sex Female 5:36 AM EST Gender Identity Not on file Sexual Orientation Not on file Plan of Treatment Health Maintenance Due Date Last Done Comments Gonorrhea/Chlamydia Screening 2004 Varicella Vaccines (1 of 2 - 13+ 2-dose series) 02/28/2017 HPV Vaccines (1 - 3-dose series) 02/28/2019 Meningococcal B Vaccine (1 o f 2 - Standard) 2020 DTaP,Tdap,and Td Vaccines (1 - Tdap) 02/28/2023 Hepatitis B Vaccines (1 of 3 - 19+ 3-dose series) 02/28/2023 Depression Screening 03/03/2024 COVID-19 Vaccine (1 - 2023-2 5 season) 2024 Influenza Vaccine (#1) 2024 HIB Vaccines Aged Out No longer eligi ble based on patient's age to complete this topic Hepatitis A Vaccines Aged Out No long er eligible based on patient's age to complete this topic IPV Vaccines Aged Out No longer eligi ble based on patient's age to complete this topic MMR Vaccines Aged Out No longer eligi ble based on patient's age to complete this topic Meningococcal ACWY Vaccine Aged Out N o longer eligible based on patient's age to complete this topic Pneumococcal Vaccine: Pediat rics (0 to 5 Years) and At-Risk Patients (6 to 49 Years) Aged Out No longer eligible b ased on patient's age to complete this topic RSV Immunization Patients Un gray 20 months Aged Out No longer eligible b ased on patient's age to complete this topic
--- OUTSIDE RECORDS SUMMARY | 2024-11-03 14:53 | XMS_ITS | Encounter Summary ---
Author Organization [email or web address] Address [address] [facility] 7 [place] [address] Care Team Providers Care Dredge Pumper Name Role Phone Jazmín Castellon Primary Care Provider [phone] Robert Greenfield MD Unavailable [phone] Reason for Visit * Reason Onset Date Comments Order(s) 02/25/2023 Encounter Details Date Type Department Care Team ([facility] Contact Info) Description 02/25/2023 Telephone [facility]EDS [address] [place], [place] [phone] Jazmín Castellon FNP [address] [place], [place] [phone] Order(s) Social History Tobacco Use Types Packs/Day Years Used Date Smoking Tobacco: Never Smokeless Tobacco: Never Alcohol Use Standard Drinks/Week Comments Never 0 (1 standard drink = 0.6 oz pur e alcohol) Depression Answer Date Recorded Patient Health Questionnaire-9 Score 9 01/27/2023 Patient Health Questionnaire-9 Score 9 01/27/2023 Last PHQ-9: Questionnaire Data Not on file 1 03/29/2022 Housing Stability Answer Date Recorded What is your housing situation today? I have todd joyner 01/03/[address] you li ve. Do you have problems with any of the following? None of the above 01/03/2023 Food Insecurity Answer Date Recorded Within the past 12 months, y ou worried that your food would run out before you got money to buy more: Often true 01/03/2023 Within the past 12 months,th e food you bought just didn't last and you didn't have enough money to get more: Often true 05/2022 Transportation Answer Date Recorded In the past [...] Answer Date Recorded Patient Health Questionnaire-2 Score 1 01/27/2023 Comments Unknown Sex and Gender Information Value Date Recorded Sex Assigned at Female 12/31/2021 10:21 AM EDT Legal Sex Female 10:21 AM EDT Gender Identity Female 12/31/2021 10:21 AM EDT Sexual Orientation Bisexual 02/10/2023 2: 46 PM EST documented as of this encounter Miscellaneous Notes * Telephone Encounter - Apryl Silver RN - 03/05/2023 3:54 PM EST Returned call to pt mom regarding message below. Mom informed of imaging results and PCP recommendations. Mom agreed to f/u appt with PCP to discuss next steps as pt is still c/o of symptoms. Appt scheduled for 03/21/23 with PCP. * Telephone Encounter - AXEL Harding - 03/05/2023 2:33 PM EST Reviewed results of scans in chart. No abnormalities seen in either the thyroid ultrasound or the vascular ultrasound of blood flow in neck. No sign of stenosis in either carotid artery. If symptoms persist, please encourage her schedule follow up appt to discuss further, thank you! * Telephone Encounter - Apryl Silver RN - 02/27/2023 11:16 AM EST Placed call to pt. Spoke with pt mom who states pt is still having pulsating sensation in neck. Mominformed of issue with US order but mom states pt had carotid duplex scan on 02/04/23 and US thyroidyesterday. Verified information in [employer] system. Unsure why they called stating this if both scans were done. Results for both scans scanned to pt chart for PCP and mom informed will be informed of further POC if needed. Mom agrees with plan. * Telephone Encounter - AXEL Harding - 02/26/2023 4:57 PM EST Please call Saad and ask if she is still having palpation/pulsating sensation on neck. Radiologyis able to do the thyroid US, but not able to do vascular US without referral to vascular specialist/doctor. Would recommend that we may start with thyroid US, and if symptoms persist, can refer to Vascular for further eval. However, if symptoms have been persistent or worsening, please let me know so that I can initiate vascular referral. Thank you! * Telephone Encounter - Chong Lin - 02/25/2023 4:05 PM EST Tc from Jennifer working with [facility] in regards to Thyroid and carotid. Jennifer stated they can do Thyroid but cannot do the Carotid because that is considered vascular. She also stated that it is possible to book It for vascular by calling the booking dept. If any questions please contact Jennifer/[facility] at [phone]. documented in this encounter Plan of Treatment Upcoming Encounters Date Type Department Care Team (Late st Contact Info) Description 03/24/2025 2:00 PM EST Office Visit [facility] [address] [place], [place] [phone] Elke Jha, OD [address] [place] [address] documented as of this encounter Visit Diagnoses Not on filedocumented in this encounter Additional Health Concerns Assessment Noted Time PHQ-9 Depression Total Score: 9 01/28/20 1:30 PM EST documented as of this encounter Care Teams Dredge Pumper Relationship Specialty Start Date End Date Jazmín Castellon FNP [address] [place] [phone] PCP - General Family Medicine 08/29/21 Robert Greenfield MD [address] [place] [phone] Gastroenterology 02/19/24 documented as of this encounter
--- OUTSIDE RECORDS SUMMARY | 2024-11-03 14:53 | XMS_ITS | Encounter Summary ---
Author Organization [employer] Address [address] [facility] 7t [place] [address] Care Team Providers Care Disciplinary Hearing Officer Name Role Phone Jazmín Castellon Primary Care Provider [phone] Robert Greenfield MD Unavailable [phone] Encounter Details Date Type Department Care Team (Late st Contact Info) Description 11/03/2024 Population Health Risk Score [facility] ([facility] Department [address] [facility] [address] [place] [phone] Provider, Population Health Generic Social History Tobacco Use Types Packs/Day Years Used Date Smoking Tobacco: Never Passive Smoke Exposure: Never Smokeless Tobacco: Never Alcohol Use Standard [...] Q2 Not on file 10/01/2024 Comments Unknown Sex and Gender Information Value Date Recorded Sex Assigned at Female 12/31/2021 10:21 AM EDT Legal Sex Female 10:21 AM EDT Gender Identity Female 12/31/2021 10:21 AM EDT Sexual Orientation Bisexual 02/10/2023 2: 46 PM EST documented as of this encounter Plan of Treatment Upcoming Encounters Date Type Department Care Team (Late st Contact Info) Description 03/24/2025 2:00 PM EST Office Visit [facility] [address] [place] [address] Elke Jha, OD [address] [place] [address] documented as of this encounter Visit Diagnoses Not on filedocumented in this encounter Additional Health Concerns Assessment Noted Time PHQ-9 Depression Total Score: 14 025 2:18 PM EDT documented as of this encounter Care Teams Disciplinary Hearing Officer Relationship Specialty Start Date End Date Jazmín Castellon FNP [address] [place] [address] PCP - General Family Medicine 08/29/21 Robert Greenfield MD [address] [place] [address] [place] [phone] Gastroenterology 02/19/24 documented as of this encounter
--- OUTSIDE RECORDS SUMMARY | 2024-11-03 14:53 | XMS_ITS | Encounter Summary ---
Author Organization [employer] Address [address] [facility] 7 [place] [address] Care Team Providers Care Tarper Name Role Phone Jazmín Castellon Primary Care Provider [phone] Robert Greenfield MD Unavailable [phone] Reason for Visit * Reason Comments Med Refill Encounter Details Date Type Department Care Team ([facility] st Contact Info) Description 06/12/2023 Refill [facility] MED & PEDS [address] [place], [place] [phone] Jazmín Castellon FNP [address] [place], [place] [phone] Gastroesophageal reflux disease, unspecified whether esophagitis present Social History Tobacco Use Types Packs/Day Years [...] Description 03/24/2025 2:00 PM EST Office Visit [facility] OPTOMETRY [address] [place] [address] Abhijeet, Elke, OD [address] [place] [address] documented as of this encounter Visit Diagnoses Diagnosis Gastroesophageal reflux disease, unspecified whether esophagitis present documented in this encounter Additional Health Concerns Assessment Noted Time PHQ-9 Depression Total Score: 9 01/28/20 23 1:30 PM EST documented as of this encounter Care Teams Tarper Relationship Specialty Start Date End Date Jazmín Castellon FNP [address] [place] [address] PCP - General Family Medicine 08/29/21 Robert Greenfield MD [address] [place] [address] [address] [place] [phone] Gastroenterology 02/19/24 documented as of this encounter
--- OUTSIDE RECORDS SUMMARY | 2024-11-03 14:53 | XMS_ITS | Encounter Summary ---
Author Organization [employer] Address [address] [facility] [address], [place] [address] Care Team Providers Care Head Buyer Tobacco Name Role Phone Jazmín Castellon Primary Care Provider [phone] Robert Greenfield MD Unavailable [phone] Encounter Details Date Type Department Care Team ([facility] Contact Info) Description 02/06/2022 [facility] Information Management [address] [place] [address] Jazmín Castellon FNP [address] [place], [place] [phone] Social History Tobacco Use Types Packs/Day Years Used Date Smoking Tobacco: Never Assessed Comments Unknown Sex and Gender Information Value Date Recorded Sex Assigned at Female 12/31/2021 10:21 AM EDT Legal Sex Female 10:21 AM EDT Gender Identity Female 12/31/2021 10:21 AM EDT Sexual Orientation Bisexual 02/10/2023 2: 46 PM EST COVID-19 Exposure Response Date Recorded In the last 10 days, have yo u been in contact with someone who was confirmed or suspected to have Coronavirus/COVID-19? No / Unsure 02/05/2022 10:24 AM EST documented as of this encounter Plan of Treatment Upcoming Encounters Date Type Department Care Team ([facility] Contact Info) Description 03/24/2025 2:00 PM EST Office Visit [facility] OPTOMETRY [address] [place] [address] Elke Jha, OD [address] [place] [address] documented as of this encounter Visit Diagnoses Not on filedocumented in this encounter Care Teams Head Buyer Tobacco Relationship Specialty Start Date End Date Jazmín Castellon FNP [address] [place] [address] PCP - General Family Medicine 08/29/21 Robert Greenfield MD [address] [place] [address] [address] [place] [phone] Gastroenterology 02/19/24 documented as of this encounter
[2024-11-03 16:22] LABS: MANUAL DIFF FLAG NO
[2024-11-03 16:24] LABS: Hematocrit 43.0 % (37.0-47.0); Hemoglobin 14.3 g/dl (12.0-16.0); Imm Gran Abs Auto 0.01 X10*3/uL (0.00-0.03); Imm Gran Pct Auto 0.2 % (0.0-0.4); Lymphocytes Absolute Auto 1.9 X10*3/uL (1.2-4.9); Mean Corpuscular HGB Conc 33.3 g/dl (31.0-35.0); Mean Corpuscular Hemoglobin 27.1 pg (27.0-33.0); Mean Corpuscular Volume 81.6 fL (80.0-98.0); NRBC Abs Auto 0.000 X10*3/uL (0.0-0.012); NRBC Pct Auto 0.0 /100WBC (0.0-0.2); Platelet Count 246 X10*3/uL (160-400); Red Blood Count 5.27 X10*6/uL (4.20-5.50); White Blood Count 4.0 X10*3/uL (4.8-10.8)
[2024-11-03 16:41] LABS: Hemoglobin A1C 146.5098 umol/L; Total Hemoglobin (HGBA1C) 4189.9861 umol/L
[2024-11-03 16:44] LABS: Alanine Aminotransferase 21 U/L (0-31); Albumin Level 4.7 g/dL (3.5-5.0); Alkaline Phosphatase 63 U/L (39-117); Anion Gap 12 (12-20); Aspartate Amino Transferase 30 U/L (5-31); Blood Urea Nitrogen 7 mg/dL (9-16); Calcium 8.9 mg/dL (8.4-10.2); Carbon Dioxide 25 mmol/L (22-29); Chloride 105 mmol/L (96-108); Cholesterol 136 mg/dL (<200); Estimated Glomerular Filt Rate > 60; HDL Cholesterol 46 mg/dL (>40); Potassium 3.8 mmol/L (3.3-5.1); Sodium 138 mmol/L (135-145); Total Protein 7.5 g/dL (6.5-8.0); Triglycerides 88 mg/dL (<150)
[2024-11-04 08:03] LABS: HIV Num 1 0.06 S/CO (0.00-0.99)
[2024-11-05 13:54] LABS: HCV Log PCR <1.18 NOT DETECTED Log IU/mL (NOT DETECTED); HepC Viral Load <15 NOT DETECTED IU/mL (NOT DETECTED)
== END 2024-11-03 12:17 | disposition home or self-care (01) ==
LOC: HO.HHCL 12:16
PROVIDERS: PCP Registered Nurse; Visit Provider Registered Nurse
DX: Z00.00 Encounter for general adult medical examination without abnormal findings (principal); Z11.3 Encounter for screening for infections with a predominantly sexual mode of transmission; Z11.59 Encounter for screening for other viral diseases; Z11.4 Encounter for screening for human immunodeficiency virus [HIV]
CPT/HCPCS: 36415; 80053; 80061; 83036; 84443; 85025; 86592; 87389; 87522